=== PATIENT | male | born 1980 | race African-American/Black ===

== ENCOUNTER 2017-05-20 18:34 | Emergency (ER) | payer BC | END 2017-05-20 20:45 | disposition home or self-care (01) | LOC: D.ER 18:34 | DX: S16.1XXA Strain of muscle, fascia and tendon at neck level, initial encounter (principal); V43.52XA Car driver injured in collision with other type car in traffic accident, initial encounter; Y93.89 Activity, other specified; Y92.410 Unspecified street and highway as the place of occurrence of the external cause; S39.012A Strain of muscle, fascia and tendon of lower back, initial encounter; F17.200 Nicotine dependence, unspecified, uncomplicated ==

== ENCOUNTER 2019-11-02 16:03 | Emergency (ER) | payer OTHER ==
[~2019-11-02] VITALS: Ht 200.7 cm; Wt 111.4 kg
[2019-11-02 16:14] VITALS: Ht 200.7 cm; Wt 111.4 kg
[2019-11-02 17:06] LABS: BASOPHILS 0.2 % (0-2); EOSINOPHILS 1.7 % (0-7); HEMATOCRIT 49.7 % (42.0-54.0); HEMOGLOBIN 16.5 g/dL (13.5-17.5); IMMATURE GRANULOCYTES 0.2 % (0-5); LYMPHOCYTES 28.7 % (15-50); MCH 32.7 pg (26.0-34.0); MCHC 33.2 g/dL (31.0-37.0); MCV 98.6 fL (80.0-100.0); MEAN PLATELET VOLUME 12.1 fL (7.4-10.4); MONOCYTES 11.8 % (2-11); NEUTROPHILS 57.4 % (40-80); PLATELET COUNT 158 10x3/uL (130-400); RBC 5.04 10x6/uL (4.20-6.10); RDW 13.9 % (11.5-14.5); WBC 8.6 10x3/uL (4.8-10.8)
[2019-11-02 17:13] LABS: ANION GAP 14.2 mmol/L (8-16); CALCIUM 9.1 mg/dL (8.5-10.1); CARBON DIOXIDE 24.5 mmol/L (21.0-32.0); CREATININE - SERUM 1.2 mg/dL (0.6-1.3); POTASSIUM - SERUM 3.7 mmol/L (3.5-5.1)
[2019-11-02 17:19] LABS: ALBUMIN 4.3 g/dL (3.4-5.0); BILIRUBIN - TOTAL 0.36 mg/dL (0.2-1.3); C-REACTIVE PROTEIN 0.8 mg/dL (0.0-0.9); PROTEIN - SERUM 8.3 g/dL (6.4-8.2)
[2019-11-02 17:26] LABS: BILIRUBIN NEGATIVE (NEGATIVE); GLUCOSE NEGATIVE (NEGATIVE); KETONE NEGATIVE (NEGATIVE); NITRITE NEGATIVE (NEGATIVE); SPECIFIC GRAVITY 1.015 (1.005-1.020); UROBILINOGEN NORMAL (NORMAL)
[2019-11-02] MEDS ORDERED: TORADOL10 MG PO (17:52)
[2019-11-02] MEDS ORDERED: CYCLOBENZAPRINE10 MG PO (17:52)
[2019-11-02 18:43] VITALS: BP 128/89
== END 2019-11-02 18:44 | disposition home or self-care (01) ==
LOC: D.ER 16:03
PROVIDERS: Family Medicine
DX: M16.12 Unilateral primary osteoarthritis, left hip (principal); M25.50 Pain in unspecified joint; M54.5 Low back pain